=== PATIENT | female | born 1950 | race Caucasian/White ===

== ENCOUNTER 2019-03-18 12:41 | Emergency (ER) | payer BC ==
[~2019-03-18] VITALS: Wt 135.2 kg
[2019-03-18 13:37] LABS: BASO % 0.4 % (0.0-1.0); EOS # 0.1 10*3/uL (0.0-0.4); EOS % 0.9 % (1.0-4.0); HEMATOCRIT 44.2 % (37.0-47.0); HEMOGLOBIN 14.3 g/dl (12.0-16.0); LYMPH # 1.3 10*3/uL (1.3-4.4); MEAN CELL VOLUME 97.4 fl (81.0-99.0); MEAN CORPUSCULAR HGB 31.5 pg (27.0-31.0); MEAN CORPUSCULAR HGB CONC 32.4 g/dl (33.0-37.0); MEAN PLATELET VOLUME 9.8 fl (9.6-12.3); MONO # 0.8 10*3/uL (0.1-1.0); MONO % 7.4 % (3.0-9.0); NEUT # 8.4 10*3/uL (2.3-7.9); NEUT % 78.9 % (47.0-73.0); PLATELET COUNT AUTOMATED 307 10*3/uL (130-400); RED BLOOD COUNT 4.54 10*6/uL (4.10-5.10); RED CELL DISTRI WIDTH 12.9 % (0-14.5); WHITE BLOOD COUNT 10.6 10*3/uL (4.8-10.8)
[2019-03-18 13:47] LABS: ACT PARTIAL THROMBO TIME 25.4 SECONDS (20.0-32.1); INTERNATIONAL NORM RATIO 0.9 (2.0-3.5)
[2019-03-18 13:54] LABS: ALBUMIN 3.5 gm/dl (3.1-4.5); ALKALINE PHOSPHATASE 132 U/L (45-117); BUN 16 mg/dl (7-24); CHLORIDE 107 mmol/L (98-107); CREATININE 0.78 mg/dL (0.55-1.02); LIPASE 130 U/L (73-393); POTASSIUM 3.9 mmol/L (3.5-5.1); SGOT/AST 25 IU/L (3-35); SGPT/ALT 41 U/L (12-78); SODIUM 139 mmol/L (136-145); TOTAL PROTEIN 7.4 gm/dL (6.4-8.2)
[2019-03-18 13:56] LABS: TROPONIN I < 0.015 ng/ml (<0.045)
[2019-03-18 14:21] LABS: BILIRUBIN NEGATIVE (NEGATIVE); BLOOD TRACE-INTACT (NEGATIVE); CLARITY CLEAR (CLEAR); COLOR YELLOW (YELLOW); GLUCOSE NEGATIVE (NEGATIVE); KETONE NEGATIVE (NEGATIVE); LEUKO ESTERASE NEGATIVE (NEGATIVE); NITRITE NEGATIVE (NEGATIVE); UROBILINOGEN 0.2 E.U./dl (0.2-1.0)
[2019-03-18 14:43] LABS: BACTERIA 1+; RBC 0-2 rbc/hpf (0-2); WBC 0-2 wbc/hpf (0-5)
== END 2019-03-18 17:51 | disposition short-term general hospital (02) ==
LOC: ED 12:41
PROVIDERS: Emergency Medicine
DX: G45.9 Transient cerebral ischemic attack, unspecified (principal)

== ENCOUNTER → 2021-05-10 | Outpatient (CLI) | payer BC | END | disposition home or self-care (01) | LOC: COVID19 16:14 | PROVIDERS: ATTEND Family Medicine | DX: Z20.822 Contact with and (suspected) exposure to COVID-19 (principal) ==

== ENCOUNTER → 2021-05-17 | Outpatient (CLI) | payer BC | END | disposition home or self-care (01) | LOC: COVID19 17:50 | PROVIDERS: ATTEND Student in an Organized Health Care Education/Training Program | DX: Z20.822 Contact with and (suspected) exposure to COVID-19 (principal) ==

== ENCOUNTER 2023-03-15 15:03 | Inpatient (IN) | payer BC, MEDICARE ==
[~2023-03-15] VITALS: Ht 170 cm; Wt 122.0 kg
[2023-03-15 15:19] VITALS: BP 206/103
[2023-03-15] MEDS ORDERED: LISINOPRIL10 M1 PO (15:34)
[2023-03-15] MEDS ORDERED: TOLTERODINE TART4 M1 PO (15:35)
[2023-03-15] MEDS ORDERED: OMEPRAZOLE40 MG PO (15:35)
[2023-03-15] MEDS ORDERED: CYMBALTA60 MG PO (15:36)
[2023-03-15 15:52] LABS: BASO # 0.1 10*3/uL (0.0-0.1); BASO % 0.5 % (0.0-1.0); EOS # 0.2 10*3/uL (0.0-0.4); EOS % 2.1 % (1.0-4.0); HEMATOCRIT 45.8 % (37.0-47.0); LYMPH # 1.5 10*3/uL (1.3-4.4); LYMPH % 15.9 % (27.0-41.0); MEAN CELL VOLUME 91.1 fl (81.0-99.0); MEAN CORPUSCULAR HGB 28.4 pg (27.0-31.0); MEAN CORPUSCULAR HGB CONC 31.2 g/dl (33.0-37.0); MEAN PLATELET VOLUME 9.8 fl (9.6-12.3); MONO # 0.7 10*3/uL (0.1-1.0); MONO % 7.8 % (3.0-9.0); NEUT # 6.7 10*3/uL (2.3-7.9); NEUT % 73.4 % (47.0-73.0); PLATELET COUNT AUTOMATED 398 10*3/uL (130-400); RED BLOOD COUNT 5.03 10*6/uL (4.10-5.10); RED CELL DISTRI WIDTH 14.1 % (0-14.5); WHITE BLOOD COUNT 9.2 10*3/uL (4.8-10.8)
[2023-03-15 16:20] LABS: BILIRUBIN Negative (Negative); BLOOD Negative (Negative); CLARITY Clear (Clear); COLOR Yellow (Yellow); GLUCOSE Negative (Negative); KETONE Negative (Negative); LEUKO ESTERASE Negative (Negative); NITRITE Negative (Negative); PH 6.5 (4.5-8.0); SPECIFIC GRAVITY <= 1.005 (1.001-1.030); UROBILINOGEN 0.2 E.U./dl (0.0-1.0)
[2023-03-15 16:29] LABS: BACTERIA 1+; WBC 0-2 wbc/hpf (0-5)
[2023-03-15 16:34] LABS: ACT PARTIAL THROMBO TIME 27.1 SECONDS (20.0-32.1)
[2023-03-15 16:42] LABS: ALKALINE PHOSPHATASE 130 U/L (46-116); BUN 11 mg/dl (9-23); CHLORIDE 104 mmol/L (98-107); LIPASE 49 U/L (12-53); POTASSIUM 3.8 mmol/L (3.4-5.1); SGPT/ALT 12 U/L (5-49); TOTAL PROTEIN 7.4 gm/dL (6.0-8.0)
[2023-03-15 17:29] VITALS: BP 189/119
[2023-03-15 19:19] VITALS: BP 195/118
[2023-03-15 19:58] VITALS: BP 210/145
[2023-03-15 20:57] VITALS: BP 179/104
[2023-03-15 21:46] VITALS: BP 213/86
[2023-03-15 23:02] LABS: ABG BASE EXCESS 0.7 mmol/L (-2.0-2.0); ARTERIAL BLOOD GAS PH 7.432 (7.35-7.45)
[2023-03-16] VITALS (10 sets, daily range): BP systolic 108–200; BP diastolic 67–116
[2023-03-16 06:33] LABS: HEMATOCRIT 45.9 % (37.0-47.0); MEAN CELL VOLUME 88.6 fl (81.0-99.0); MEAN CORPUSCULAR HGB 28.4 pg (27.0-31.0); MEAN PLATELET VOLUME 9.6 fl (9.6-12.3); PLATELET COUNT AUTOMATED 413 10*3/uL (130-400); RED BLOOD COUNT 5.18 10*6/uL (4.10-5.10); RED CELL DISTRI WIDTH 14.1 % (0-14.5)
[2023-03-16 06:39] LABS: MANUAL DIFF REFLEX YES
[2023-03-16 07:27] LABS: ALKALINE PHOSPHATASE 130 U/L (46-116); BUN 14 mg/dl (9-23); CHLORIDE 103 mmol/L (98-107); CHOLESTEROL 220 mg/dL (<200); FREE T4 1.37 ng/dl (0.89-1.76); LDL CHOLESTEROL 158 mg/dL (9-159); POTASSIUM 4.1 mmol/L (3.4-5.1); SGPT/ALT 13 U/L (5-49); TOTAL PROTEIN 7.6 gm/dL (6.0-8.0); TRIGLYCERIDES 80 mg/dl (<150)
[2023-03-16 08:09] LABS: PLATELET SUFFICIENCY HIGH (NORMAL); TOTAL CELLS COUNTED 100 #CELLS
[2023-03-16 16:56] LABS: URINE AMPHETAMINES Negative (1000ng/ml); URINE BARBITURATES Negative (200ng/ml); URINE BENZODIAZEPINES Negative (200ng/ml); URINE CANNABINOIDS (THC) Negative (50ng/ml); URINE COCAINE Negative (300ng/ml); URINE METHADONE Negative (300ng/ml); URINE OPIATES Negative (300ng/ml); URINE PHENCYCLIDINE Negative (25ng/ml)
[2023-03-17] VITALS (8 sets, daily range): BP systolic 95–133; BP diastolic 59–93
[2023-03-17 06:17] LABS: BUN 20 mg/dl (9-23); CHLORIDE 105 mmol/L (98-107); POTASSIUM 3.6 mmol/L (3.4-5.1)
[2023-03-18] VITALS (8 sets, daily range): BP systolic 112–138; BP diastolic 44–85
[2023-03-18 06:27] LABS: BUN 28 mg/dl (9-23); CHLORIDE 106 mmol/L (98-107); POTASSIUM 3.7 mmol/L (3.4-5.1)
[2023-03-19] VITALS (12 sets, daily range): BP systolic 106–136; BP diastolic 61–89
[2023-03-19 08:16] LABS: BASO # 0.1 10*3/uL (0.0-0.1); BASO % 0.8 % (0.0-1.0); EOS # 0.5 10*3/uL (0.0-0.4); EOS % 4.9 % (1.0-4.0); HEMATOCRIT 44.5 % (37.0-47.0); LYMPH # 2.5 10*3/uL (1.3-4.4); LYMPH % 25.7 % (27.0-41.0); MEAN CELL VOLUME 93.7 fl (81.0-99.0); MEAN CORPUSCULAR HGB 28.8 pg (27.0-31.0); MEAN CORPUSCULAR HGB CONC 30.8 g/dl (33.0-37.0); MEAN PLATELET VOLUME 9.8 fl (9.6-12.3); MONO % 9.9 % (3.0-9.0); NEUT # 5.7 10*3/uL (2.3-7.9); NEUT % 58.2 % (47.0-73.0); PLATELET COUNT AUTOMATED 352 10*3/uL (130-400); RED BLOOD COUNT 4.75 10*6/uL (4.10-5.10); RED CELL DISTRI WIDTH 14.7 % (0-14.5); WHITE BLOOD COUNT 9.8 10*3/uL (4.8-10.8)
[2023-03-20] VITALS (9 sets, daily range): BP systolic 105–144; BP diastolic 50–90
[2023-03-20 07:12] LABS: BASO # 0.1 10*3/uL (0.0-0.1); BASO % 0.7 % (0.0-1.0); EOS # 0.7 10*3/uL (0.0-0.4); EOS % 6.8 % (1.0-4.0); HEMATOCRIT 45.2 % (37.0-47.0); LYMPH # 2.3 10*3/uL (1.3-4.4); LYMPH % 23.4 % (27.0-41.0); MEAN CELL VOLUME 92.8 fl (81.0-99.0); MEAN CORPUSCULAR HGB 28.5 pg (27.0-31.0); MEAN CORPUSCULAR HGB CONC 30.8 g/dl (33.0-37.0); MONO # 0.9 10*3/uL (0.1-1.0); MONO % 9.2 % (3.0-9.0); NEUT # 5.9 10*3/uL (2.3-7.9); NEUT % 59.5 % (47.0-73.0); PLATELET COUNT AUTOMATED 359 10*3/uL (130-400); RED BLOOD COUNT 4.87 10*6/uL (4.10-5.10); RED CELL DISTRI WIDTH 14.6 % (0-14.5); WHITE BLOOD COUNT 9.9 10*3/uL (4.8-10.8)
[2023-03-20 07:33] LABS: BUN 17 mg/dl (9-23); CHLORIDE 108 mmol/L (98-107); POTASSIUM 4.2 mmol/L (3.4-5.1)
[2023-03-21] VITALS (14 sets, daily range): BP systolic 118–153; BP diastolic 58–96
[2023-03-22] VITALS: BP 129/69
[2023-03-22 08:00] VITALS: BP 137/82
[2023-03-22 12:00] VITALS: BP 148/99
[2023-03-22 16:00] VITALS: BP 154/72
[2023-03-22 20:00] VITALS: BP 143/80
[2023-03-23] VITALS: BP 134/75
[2023-03-23 08:00] VITALS: BP 138/80
[2023-03-23 12:00] VITALS: BP 142/82
[2023-03-23] MEDS ORDERED: ASPIRIN ADULT L81 M2 PO (12:38)
[2023-03-23] MEDS ORDERED: ATORVASTATIN CA40 M1 PO (12:38)
[2023-03-23] MEDS ORDERED: LOPRESSOR25 MG PO (12:38)
[2023-03-23] MEDS ORDERED: Coumadin3 MG PO (12:38)
== END 2023-03-23 14:15 | disposition home or self-care (01) | DRG 304 ==
LOC: ED 15:03 → EDHOLD 16:44 → 5E 16:44 → EDHOLD 17:00 → 5E 03-16 20:13
PROVIDERS: Emergency Medicine; Family Medicine; Internal Medicine; Student in an Organized Health Care Education/Training Program; ADMIT Internal Medicine; ATTEND Internal Medicine
PROC: B24BZZ4 Ultrasonography of Heart with Aorta, Transesophageal (ICD-10-PCS; principal; 2023-03-21)
PROC: 5A2204Z Restoration of Cardiac Rhythm, Single (ICD-10-PCS; 2023-03-21)
DX: I16.1 Hypertensive emergency (principal); G93.41 Metabolic encephalopathy; I67.83 Posterior reversible encephalopathy syndrome; E87.20 Acidosis, unspecified; G45.9 Transient cerebral ischemic attack, unspecified; R65.10 Systemic inflammatory response syndrome (SIRS) of non-infectious origin without acute organ dysfunction; Z68.41 Body mass index [BMI] 40.0-44.9, adult; N32.81 Overactive bladder; R82.71 Bacteriuria; N18.31 Chronic kidney disease, stage 3a; E78.5 Hyperlipidemia, unspecified; I08.0 Rheumatic disorders of both mitral and aortic valves; I44.7 Left bundle-branch block, unspecified; R94.31 Abnormal electrocardiogram [ECG] [EKG]; F32.9 Major depressive disorder, single episode, unspecified; I12.9 Hypertensive chronic kidney disease with stage 1 through stage 4 chronic kidney disease, or unspecified chronic kidney disease; K21.9 Gastro-esophageal reflux disease without esophagitis; I48.0 Paroxysmal atrial fibrillation; Z91.041 Radiographic dye allergy status; Z90.710 Acquired absence of both cervix and uterus; Z79.899 Other long term (current) drug therapy